=== PATIENT | female | born 1985 | race Caucasian/White ===

== ENCOUNTER 2017-04-01 18:12 | Inpatient (IN) | payer BC ==
[2017-04-01 18:37] VITALS: BMI 27.2
[2017-04-01] MEDS ORDERED: Penicillin G Potassium 5 MILL.UNITS VIAL ONE ×3 (18:52→18:53)
[2017-04-01] MEDS ORDERED: LR / Pitocin 40 units/1000 ml 1,000 ML IV PRN (18:56)
[2017-04-01] MEDS ORDERED: Lidocaine 1% (PF) 30 ML VIAL SC SCH ×2 (18:56→19:15)
[2017-04-01] MEDS ORDERED: Promethazine HCl 25 MG/ML VIAL IM PRN (18:56)
[2017-04-01] MEDS ORDERED: Acetaminophen/Codeine 30-300mg Tablet PO PRN ×4 (18:56→22:33)
[2017-04-01] MEDS ORDERED: Ibuprofen 800 MG TAB PO PRN (18:56)
--- NOTE | 2017-04-01 18:56 | PDOC.LDHP ---
Labor and Delivery H&P HPI: Patient of Dr Hassan who arrives with spont onset of labor and admitted at 8cm about 10 minutes ago. No issues. ALLERGY to SULFA. GBS positive. She is a 31 yo prior . Current gestational age (weeks): 40 (2 days) Dating criteria: last menstrual period Grav: 2 Para: 1 OB History Details: Prior Current complications: none Abnormal US findings: No Current medications: pre- vitamins Allergies/Adverse Reactions: Allergies Allergy/AdvReac Type Severity Reaction Status Date / Time Sulfa (Sulfonamide Allergy Verified 12/31/14 03:30 Antibiotics) Social history: none - Physical Exam Vital signs reviewed and normal: yes General: NAD Heart: RRR Lungs: CTAB Abdomen: gravid FHT: category 1 - Vaginal Exam cm dilated: 9 (BOWI) Effacement: 75% Station: -1 - Assessment L&D Assessment: term patient in labor - Plan Plan: admit to L&D (Dr Hassan will assume care (commincation done).), labor augmentation if indicated, GBS antibiotic prophylaxis, informed consent obtained , anesthesia consult for pain management
[2017-04-01] MEDS ORDERED: Penicillin G Potassium 5 MILL.UNITS in Sodium Chloride 0.9% 100 ML IVPB SCH (19:00)
[2017-04-01] MEDS ORDERED: Lactated Ringer's 1,000 ML IV SCH (19:00)
[2017-04-01 19:18] LABS: Hemoglobin 14.6 g/dL (12.0-16.0); Mean Corpuscular HGB CONC 33.5 g/dL (32.0-36.0); Mean Corpuscular Hemoglobin 33.4 pg (27.0-31.0); Mean Corpuscular Volume 99.9 fl (81.0-99.0); Mean Platelet Volume 8.4 fL (7.4-10.4); Platelet Count 217 thou/uL (130-400); Red Blood Cell (RBC) Count 4.36 mill/uL (4.20-5.40); White Blood Cell (WBC) Count 16.5 thou/uL (4.8-10.8)
[2017-04-01] MEDS ORDERED: Oxytocin 10 UNITS/ML VIAL ONE ×2 (19:29)
--- NOTE | 2017-04-01 19:57 | PDOC.OPDEL ---
OB Operative/Delivery Note Delivery Dr/Surgeon: Sonya Assist: n/a Pre-Delivery Diagnosis: active labor Procedure/Post Delivery Dx: spontaneous vaginal delivery Weeks gestation: 40 Anesthesia: none - Findings A Sex: female - 1 min: 8 - 5 min: 9 - Additional Findings/Plan Placenta delivered: spontaneous Repaired Obstetrical Laceration: 1st degree (hemostatic and not repaired) Estimated blood loss: 100 Post delivery plan: routine recovery
[2017-04-01 20:02] LABS: Syphilis Antibody Nonreactive (Nonreactive); Syphilis Antibody Index 0.04 S/CO (<1.00 Non-Reactive)
[2017-04-01 20:03] LABS: HBSAg Index 0.29 S/CO (0-0.99); HIV (1/2) Antibody/Antigen Non-Reactive (NonReactive); HIV 1/2 INDEX 0.36 S/CO (<1.00); Hep B Surf Ag Non-Reactive S/CO (NonReactive)
[2017-04-01] MEDS ORDERED: Penicillin G 2.5 MILL.units 2.5 MILL.UNITS in Premix Bag 1 BAG IVPB SCH (21:00)
[2017-04-01] MEDS ORDERED: Ondansetron HCl/PF 4 MG/2 ML Vial IVP PRN (22:33)
[2017-04-01] MEDS ORDERED: Preparation H Ointment 28 GM TUBE PR PRN (22:33)
[2017-04-01] MEDS ORDERED: Milk Of Magnesia 30 ML UDCUP PO PRN (22:33)
[2017-04-01] MEDS ORDERED: diphenhydrAMINE 25 MG CAP PO PRN (22:33)
[2017-04-01] MEDS ORDERED: LR / Pitocin 40 units/1000 ml 1,000 ML IV SCH (22:33)
[2017-04-01] MEDS ORDERED: Benzocaine/Menthol 20-0.5% 60 ML CAN TOP PRN (22:33)
[2017-04-01] MEDS ORDERED: Lanolin Ointment 7 GM TUBE TOP PRN (22:33)
[2017-04-01] MEDS ORDERED: Bisacodyl 10 MG SUPP PR PRN (22:33)
[2017-04-02] MEDS: Ibuprofen 800 MG TAB PO SCH ×4 (00:01→22:17)
[2017-04-02] MEDS: Docusate Calcium (SURFAK) 240 MG CAP PO SCH ×3 (00:01→22:17)
[2017-04-02] MEDS: Ferrous Sulfate 325 MG TAB PO SCH ×2 (07:46→17:32)
--- NOTE | 2017-04-02 07:46 | PDOC.PP ---
Post Progress Note Post Day #: 1 PO intake tolerated: yes Flatus: yes Ambulation: yes Vital Signs (12 hours) Temp Pulse Resp BP 04/02/17 07:42 97.6 F 63 20 111/68 04/02/17 05:45 98.4 F 69 18 102/57 L 04/02/17 00:00 97.9 F 69 20 04/01/17 23:15 97.9 F 69 20 113/67 04/01/17 22:17 98.5 F 70 18 117/73 Weight Weight 149 lb - Physical Examination General: NAD Cardiovascular: RRR Respiratory: non-labored breathing Abdominal: no distention, appropriately TTP Fundus firm & at: umb Neurological: no gross focal deficits Psychiatric: normal affect Result Diagrams: 04/01/17 19:00 Additional Labs: Post Labs Hep Bs Antigen Non-Reactive S/CO (NonReactive) 04/01/17 19:00 (1) Term delivered Code(s): O80 - ENCOUNTER FOR FULL-TERM UNCOMPLICATED DELIVERY Status: Acute - Assessment/Plan VSSAF Doing well, lochia < menses Rh pos RImm Cont PP care, home tomorrow
[2017-04-02] MEDS: Prenatal Vitamin 1 TAB PO SCH (08:53)
[2017-04-03] MEDS: Ibuprofen 800 MG TAB PO SCH (06:34)
--- NOTE | 2017-04-03 07:37 | PDOC.PP ---
Post Progress Note Post Day #: 2 PO intake tolerated: yes Flatus: yes Ambulation: yes Vital Signs (12 hours) Temp Pulse Resp BP 04/02/17 20:35 98.3 F 63 14 108/65 Weight Weight 149 lb - Physical Examination General: NAD Cardiovascular: RRR Respiratory: non-labored breathing Abdominal: no distention, appropriately TTP Fundus firm & at: umb-2 Neurological: no gross focal deficits Psychiatric: normal affect Result Diagrams: 04/01/17 19:00 Additional Labs: Post Labs Hep Bs Antigen Non-Reactive S/CO (NonReactive) 04/01/17 19:00 (1) Term delivered Code(s): O80 - ENCOUNTER FOR FULL-TERM UNCOMPLICATED DELIVERY Status: Acute - Assessment/Plan VSSAF Doing well, Pain controlled, lochia appropriate Rh pos RImm DC home, FU 6 wk
[2017-04-03] MEDS: Ferrous Sulfate 325 MG TAB PO SCH (07:42)
[2017-04-03] MEDS: Docusate Calcium (SURFAK) 240 MG CAP PO SCH (08:53)
[2017-04-03] MEDS: Prenatal Vitamin 1 TAB PO SCH (08:53)
[2017-04-03 09:25] VITALS: BP 109/64; TEMP 98.4
== END 2017-04-03 11:15 | disposition home or self-care (01) | DRG 775 ==
LOC: L&D/OP 18:12 → L&D 18:55 → 3SW 22:16
PROVIDERS: ADMIT Obstetrics & Gynecology; ATTEND Obstetrics & Gynecology
PROC: 10E0XZZ Delivery of Products of Conception, External Approach (ICD-10-PCS; principal; 2017-04-01)
DX: O70.0 First degree perineal laceration during delivery (principal); O99.824 Streptococcus B carrier state complicating childbirth; Z37.0 Single live birth; Z3A.40 40 weeks gestation of pregnancy
CPT/HCPCS: 85027; 86780; 87340; 87389; 99285; J2540; J2590

== ENCOUNTER 2019-10-21 00:35 | Inpatient (IN) | payer OTHER ==
[2019-10-21] MEDS ORDERED: Oxytocin 10 UNITS/ML VIAL ONE (01:59)
[2019-10-21] MEDS ORDERED: Lidocaine 1% (PF) 30 ML VIAL ONE (02:05)
[2019-10-21] MEDS ORDERED: Butorphanol Tartrate 1 MG/ML VIAL SLOW IVP PRN (03:45)
[2019-10-21] MEDS ORDERED: Ondansetron PF 4 MG/2 ML Vial IVP PRN (03:45)
[2019-10-21] MEDS ORDERED: Lactated Ringer's 1,000 ML IV SCH (03:45)
[2019-10-21] MEDS ORDERED: Acetaminophen/Codeine 30-300mg Tablet PO PRN ×2 (03:45)
[2019-10-21] MEDS ORDERED: Milk Of Magnesia 30 ML UDCUP PO PRN (03:45)
[2019-10-21] MEDS ORDERED: Bisacodyl 10 MG SUPP PR PRN (03:45)
[2019-10-21] MEDS ORDERED: Promethazine HCl 25 MG/ML VIAL IM PRN (03:45)
[2019-10-21] MEDS ORDERED: NS / Oxytocin 40 units/1000ml 1,000 ML IV SCH ×2 (03:45→04:00)
[2019-10-21] MEDS ORDERED: Acetaminophen 500 MG TAB PO PRN (03:45)
[2019-10-21 03:47] VITALS: BMI 26.6
[2019-10-21] MEDS ORDERED: Lidocaine 1% (PF) 30 ML VIAL SC PRN (04:00)
[2019-10-21] MEDS ORDERED: Methylergonovine 0.2 MG/ML VIAL IM PRN (04:00)
[2019-10-21] MEDS ORDERED: Carboprost 250 MCG/ML AMP IM PRN (04:00)
[2019-10-21] MEDS ORDERED: Diphenoxylate HCl/Atropine Tablet PO PRN ×2 (04:00)
[2019-10-21] MEDS ORDERED: Ibuprofen 800 MG TAB PO PRN (04:00)
[2019-10-21] MEDS ORDERED: HYDROcodone/Acetaminophen 5/325 mg Tablet PO PRN (04:00)
[2019-10-21] MEDS ORDERED: NS w/ Oxytocin 10 units 500 ML IV SCH (04:00)
[2019-10-21] MEDS ORDERED: Misoprostol 200 MCG TAB RC PRN (04:00)
[2019-10-21 05:27] LABS: Hemoglobin 12.6 g/dL (12.0-16.0); Mean Corpuscular Hemoglobin 30.1 pg (27.0-31.0); Mean Platelet Volume 8.3 fL (7.4-10.4); Platelet Count 233 thou/uL (130-400); RBC Distribution Width 12.3 % (11.5-14.5); White Blood Cell (WBC) Count 25.3 thou/uL (4.8-10.8)
[2019-10-21 06:05] LABS: Syphilis Antibody Nonreactive (Nonreactive); Syphilis Antibody Index 0.04 S/CO (<1.00 Non-Reactive)
[2019-10-21] MEDS: Lactated Ringer's 1,000 ML IV SCH ×4 (06:31→23:54)
[2019-10-21] MEDS: NS w/ Oxytocin 10 units 500 ML IV SCH ×2 (06:31→23:54)
[2019-10-21] MEDS: Ibuprofen 800 MG TAB PO SCH ×3 (06:32→22:28)
[2019-10-21 06:45] LABS: HBSAg Index 0.17 S/CO (0-0.99); Hep B Surf Ag Non-Reactive S/CO (NonReactive)
[2019-10-21] MEDS: Ferrous Sulfate 325 MG TAB PO SCH ×2 (08:38→19:07)
[2019-10-21] MEDS: Docusate Calcium (SURFAK) 240 MG CAP PO SCH ×2 (08:55→22:28)
[2019-10-21] MEDS ORDERED: Adacel (T-DAP) 0.5 ML SYRINGE IM SCH (09:00)
[2019-10-21 22:27] VITALS: TEMP 98.2
[2019-10-22] MEDS: Ibuprofen 800 MG TAB PO SCH (05:23)
[2019-10-22 08:11] VITALS: BP 97/57
[2019-10-22] MEDS: Ferrous Sulfate 325 MG TAB PO SCH (08:40)
[2019-10-22] MEDS: Docusate Calcium (SURFAK) 240 MG CAP PO SCH (08:40)
--- NOTE | 2019-10-22 09:47 | PDOC.PP ---
Post Progress Note Post Day #: 1 PO intake tolerated: yes Flatus: yes Ambulation: yes Vital Signs (12 hours) Temp Pulse Resp BP Pulse Ox 10/22/19 08:10 98.2 F 64 20 97/57 L 97 10/21/19 22:00 98.2 F 66 16 108/62 Weight Weight 160 lb - Physical Examination General: NAD Respiratory: non-labored breathing Abdominal: no distention, appropriately TTP Fundus firm & at: umb Neurological: no gross focal deficits Psychiatric: normal affect Result Diagrams: 10/21/19 05:16 Additional Labs: Post Labs Blood Type A POSITIVE 10/21/19 05:16 Hep Bs Antigen Non-Reactive S/CO (NonReactive) 10/21/19 05:16 - Assessment/Plan PPD1 s/p TSVD VSSAF No issues Rh pos RImm DC home FU 6w
== END 2019-10-22 10:35 | disposition home or self-care (01) | DRG 807 ==
LOC: L&D/OP 00:35 → L&D 03:29 → 3SW 05:35
PROVIDERS: ADMIT Student in an Organized Health Care Education/Training Program; ATTEND Student in an Organized Health Care Education/Training Program
PROC: 10E0XZZ Delivery of Products of Conception, External Approach (ICD-10-PCS; principal; 2019-10-21)
DX: O80 Encounter for full-term uncomplicated delivery (principal); Z37.0 Single live birth; Z3A.40 40 weeks gestation of pregnancy
CPT/HCPCS: 36415; 85027; 86780; 86850; 86900; 86901; 87340; 99285; J2001; J2590